=== PATIENT | male | born 1935 | race Hispanic/Latino ===

== ENCOUNTER 2019-01-12 16:37 | Emergency (ER) | payer MEDICARE ==
--- NOTE | 2019-01-12 17:44 | Event Note ---
ED Screening Note ED Screening Note: Patient is an 83-year-old male who was brought in by [facility] for elevated blood pressure. pt states that he only has fatigue. he states that "whenever he lays down they wake him back up" he denies any other symptoms. no CP, no SOB, no N/V, no dizziness, no LILLY, no numbness, no weakness BP is stable in the ED will order screening tests This initial assessment/diagnostic orders/clinical plan/treatment(s) is/are subject to change based on patients health status, clinical progression and re-assessment by fellow clinical providers in the ED. Further treatment and workup at subsequent clinical providers discretion. Patient/guardian urged not to elope from the ED as their condition may be serious if not clinically assessed and managed.
[2019-01-12 18:16] LABS: Basophils % (Auto) 0.4 % (0.0-1.8); Eosinophils # (Auto) 0.1 K/mm3 (0.0-0.4); Eosinophils % (Auto) 1.5 % (0.0-4.3); Hematocrit 39.8 % (35.5-45.6); Hemoglobin 13.1 gm/dl (11.8-15.2); Lymphocytes # (Auto) 1.4 K/mm3 (1.2-5.4); Mean Corpuscular HGB Conc 33 % (32-34); Mean Corpuscular Volume 90 fl (84-94); Monocytes # (Auto) 0.5 K/mm3 (0.0-0.8); Monocytes % (Auto) 9.5 % (0.0-7.3); Platelet Count 116 K/mm3 (140-440); Red Blood Count 4.41 M/mm3 (3.65-5.03); Red Cell Distribution Width 14.4 % (13.2-15.2)
[2019-01-12 18:37] LABS: Alanine Aminotransferase 13 units/L (7-56); Albumin 3.5 g/dL (3.9-5); BUN/Creatinine Ratio 17; Blood Urea Nitrogen 15 mg/dL (9-20); Calcium 8.9 mg/dL (8.4-10.2); Hemolysis Index 5
--- NOTE | 2019-01-12 18:46 | Emergency Department Report ---
ED General Adult HPI - General Chief complaint: High BP Stated complaint: HBP/MH EVAL Time Seen by Provider: 01/12/19 17:35 Source: patient, EMS Mode of arrival: Stretcher Limitations: No Limitations - History of Present Illness Initial comments: 83-year-old male with history of hypertension presents to ED from [facility] on a 1013 for elevated blood pressure. Patient has systolic BP in the 200s earlier today. Was given clonidine 0.1 mg. Facility reported there was no improvement in his blood pressure and so patient was sent to the ER. Blood pressure is currently 155/61. Patient denies any headache, dizziness, chest pain, shortness of breath, nausea or vomiting. -: days(s) (1) Severity scale (0 -10): 0 Consistency: constant Improves with: movement Associated Symptoms: denies: chest pain, headaches, nausea/vomiting, shortness of breath - Related Data Allergies Allergy/AdvReac Type Severity Reaction Status Date / Time No Known Allergies Allergy Unverified 01/12/19 17:17 ED Review of Systems ROS: Stated complaint: HBP/MH EVAL Other details as noted in HPI Comment: All other systems reviewed and negative Respiratory: denies: shortness of breath Cardiovascular: denies: chest pain Gastrointestinal: denies: nausea, vomiting Neurological: denies: headache, weakness, numbness ED Past Medical Hx - Past Medical History Previous Medical History?: Yes Hx Hypertension: Yes Additional medical history: MACULAR DEGENERATION, DEPRESSION, HTN - Surgical History Additional Surgical History: Cardiac quadruple bypass - Social History Smoking Status: Former Smoker ED Physical Exam - General Limitations: No Limitations General appearance: alert, in no apparent distress - Head Head exam: Present: atraumatic, normocephalic - Eye Eye exam: Present: normal appearance, PERRL, EOMI - ENT ENT exam: Present: mucous membranes moist - Neck Neck exam: Present: normal inspection - Respiratory Respiratory exam: Present: normal lung sounds bilaterally. Absent: respiratory distress - Cardiovascular Cardiovascular Exam: Present: normal rhythm, bradycardia - GI/Abdominal GI/Abdominal exam: Present: soft. Absent: distended, tenderness - Extremities Exam Extremities exam: Present: normal inspection - Neurological Exam Neurological exam: Present: alert, oriented X3, CN II-XII intact. Absent: motor sensory deficit - Psychiatric Psychiatric exam: Present: normal affect, normal mood - Skin Skin exam: Present: warm, dry, intact, normal color ED Course Vital Signs 01/12/19 01/12/19 16:45 17:26 Temperature 97.7 F Pulse Rate 54 L 54 L Respiratory 17 17 Rate Blood Pressure 160/70 Blood Pressure 155/61 [Left] O2 Sat by Pulse 96 96 Oximetry ED Medical Decision Making - Lab Data Result diagrams: 01/12/19 17:48 01/12/19 17:48 - Medical Decision Making Asymptomatic hypertension. BP improved, no intervention necessary ED. Labs unremarkable. Will discharge at this time. Outpatient follow-up advised. - Differential Diagnosis hypertension Critical care attestation.: If time is entered above; I have spent that time in minutes in the direct care of this critically ill patient, excluding procedure time. ED Disposition Clinical Impression: Hypertension Disposition: DC-01 TO HOME OR SELFCARE Is pt being admited?: No Condition: Stable Instructions: Hypertension (ED) Referrals: PRIMARY CARE [Referring] - 3-5 Days [facility] [Provider Group] - 3-5 Days Time of Disposition: 18:42
[2019-01-12 20:18] VITALS: BP 134/57
== END 2019-01-12 20:25 | disposition home or self-care (01) ==
LOC: ED 16:37
DX: I10 Essential (primary) hypertension (principal); F32.9 Major depressive disorder, single episode, unspecified; Z87.891 Personal history of nicotine dependence
CPT/HCPCS: 36415; 80053; 85025; 99283